=== PATIENT | male | born 1965 | race Caucasian/White ===

== ENCOUNTER → 2016-10-08 | Outpatient (CLI) | payer OTHER ==
--- NOTE | 2016-10-11 13:57 | SLEEPCENT ---
DATE OF STUDY: 10/08/2016 ORDERING PROVIDER: Magnolia Wiseman NP Nocturnal polysomnography was performed due to concern for the obstructive sleep apnea syndrome in this patient with a history of excessive somnolence and nonrestorative sleep. 7 hours and 14 minutes of data were reviewed. There were 391 minutes of sleep identified. Sleep latency was prolonged at 41 minutes. Rapid eye movement (REM) latency was normal at 80 minutes. Sleep architecture was fair with some fragmentation. Sleep progression was maintained. There were four REM periods appreciated. Overall sleep efficiency 85.7% The patient's electrocardiogram (EKG) showed an irregularly irregular rhythm with an average heart rate of 56 beats per minute. Electroencephalogram (EEG) showed normal waveforms for awake and sleep. There were 34 respiratory events identified of 10 seconds in duration or greater for an apnea-hypopnea index of 5.2. The events were primarily obstructive, not exclusive to sleep stage nor body posture. Arousals from respiratory events occurred 4.3 times per hour. Oxygen desaturations were not seen. Limb activity was appreciated, but the limb movement arousal index was only 4.1. IMPRESSION: Mild obstructive sleep apnea syndrome (G47.33). Apnea-hypopnea index 5.2. RECOMMENDATION: As the patient's disorder is nonpostural, referral back to sleep disorder center for pressure therapy should be considered. In the interim, alcohol and sedative avoidance should be practiced and caution exercised during the operation of motor vehicles.
== END ==
LOC: M SLEEP 20:20
PROVIDERS: ATTEND Internal Medicine Pulmonary Disease
DX: G47.33 Obstructive sleep apnea (adult) (pediatric) (principal)

== ENCOUNTER → 2016-10-28 | Outpatient (CLI) | payer OTHER ==
--- NOTE | 2016-10-31 09:15 | SLEEPCENT ---
DATE OF PROCEDURE: 10/28/2016 ORDERED BY: Magnolia Wiseman. Nocturnal polysomnography was performed for the titration of pressure therapy in this patient with obstructive sleep apnea syndrome, apnea-hypopnea index of 5.2. For testing, the patient was fit with a [employer] Eson nasal mask of large size, 4 cm of water pressure were applied to the circuit and the lights were extinguished. 7 hours and 49 minutes of data were reviewed. There were 359 minutes of sleep identified. Sleep latency was prolonged at 63 minutes. REM latency was normal at 61 minutes. Sleep architecture improved with pressure therapy. There were 4 rapid eye movement (REM) periods appreciated. Overall sleep efficiency was 77.3%. Patient's EKG showed a sinus rhythm with an average heart rate of 54 beats per minute. Occasional unifocal ventricular ectopic beats were seen. EEG showed reasonably normal wave forms for wake and sleep. Respiratory events were suppressed with pressure therapy, however late in the study the patient turned supine and had some recurrence of events. Best sleep was seen on a CPAP pressure of +9 with which some hypopneic events were seen but no significant oxygen desaturation. There was some limb activity noted in the mid portion of the study. There was only one train of 30 events. Limb movement arousal index was 12.4 up from the diagnostic study. IMPRESSION: Obstructive sleep apnea syndrome (G47.33). RECOMMENDATION: Initiation of pressure therapy at 9 cm of water is recommended. Pending the patient's clinical response, retitration may be necessary given the events seen late in the test.
== END ==
LOC: M SLEEP 20:45
PROVIDERS: ATTEND Nurse Practitioner Adult Health
DX: G47.33 Obstructive sleep apnea (adult) (pediatric) (principal)

== ENCOUNTER → 2022-04-09 | Outpatient (CLI) | payer OTHER | LOC: M SLEEP 20:00 | PROVIDERS: ATTEND Physician Assistant | DX: G47.33 Obstructive sleep apnea (adult) (pediatric) (principal) ==